=== PATIENT | female | born 1990 | race Two or more races ===

== ENCOUNTER 2024-07-31 08:54 | Emergency (ER) | payer MEDICAID, OTHER ==
[~2024-07-31] VITALS: Ht 167.6 cm; Wt 72.4 kg
[2024-07-31 09:15] VITALS: BP 153/75; PULSE 79; RESP 18; TEMP 97.5; O2SAT 99
[2024-07-31] MEDS ORDERED: AMOX500T3 PO (09:31)
[2024-07-31] MEDS ORDERED: HYDR-4902 PO (09:32)
== END 2024-07-31 09:34 | disposition home or self-care (01) ==
LOC: ER 08:54
DX: K02.9 Dental caries, unspecified (principal)

== ENCOUNTER 2025-02-24 10:15 | Emergency (ER) | payer MEDICAID ==
[~2025-02-24] VITALS: Ht 170.2 cm; Wt 82.0 kg
[~2025-02-24 10:15] MED LIST: AMOX500T3 PO; HYDR-4902 PO
[2025-02-24 11:19] VITALS: BP 127/70; PULSE 83; RESP 17; TEMP 98.6; O2SAT 98
[2025-02-24] MEDS ORDERED: PRED20TA2 PO (11:32)
[2025-02-24] MEDS ORDERED: PROM1SOL4 PO (11:32)
[2025-02-24] MEDS ORDERED: AUG875T PO (11:32)
--- NOTE | 2025-02-24 11:40 | ED.PDOC ---
SOB-HPI HPI Comments A 34 YEAR OLD FEMALE PRESENTS TO THE ED WITH CHIEF COMPLAINT OF FLU-LIKE SYMPTOMS. PATIENT REPORTS THAT SHE HAS BEEN EXPERIENCING A COUGH WITH ASSOCIATED GREEN PHLEGM, NASAL CONGESTION, SORE THROAT, AND LOWER BACK PAIN FOR THE PAST WEEK. PATIENT RELAYS THAT SHE VISITED PRIOR TO TODAY'S VISIT AND HAD A CHEST XR DONE, COMING BACK NORMAL. PATIENT STATES SHE WAS TOLD IT WAS ALLERGIES AND WAS PRESCRIBED ALLERGY MEDICATION WITH NO RELIEF NOTED. PATIENT DENIES ANY SOB, CHEST PAIN, FEVER, CHILLS, N/V, ABDOMINAL PAIN, OR HEADACHE. NO OTHER SYMPTOMS REPORTED AT THIS TIME OF CARE. 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: No Pertinent 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 RESEARCH SCIENTIST History Family History Family History: Reviewed,noncontributory to illness Social History Smoker: Non-Smoker Alcohol: Denies ETOH Use Drugs: Denies Drug Use Lives In: Home Constitutional: denies: chills, diaphoresis, fatigue, fever, malaise, sweats, weakness, others EENTM: reports: nose congestion, throat pain, throat swelling; denies: blurred vision, double vision, ear bleeding, ear discharge, ear drainage, ear pain, ear ringing, eye pain, eye redness, hearing loss, mouth pain, mouth swelling, nasal discharge, nose bleeding, nose pain, photophobia, tearing, voice changes, others Respiratory: reports: cough; denies: hemoptysis, orthopnea, SOB at rest, shortness of breath, SOB with excertion, stridor, wheezing, others Cardiovascular: denies: chest pain, dizzy spells, diaphoresis, Dyspnea on exertion, edema, irregular heart beat, left arm pain, lightheadedness, palpitations, PND, syncope, others Gastrointestinal: denies: abdomen distended, abdominal pain, blood streaked bowels, constipated, diarrhea, dysphagia, difficulty swallowing, hematemesis, melena, nausea, poor appetite, poor fluid intake, rectal bleeding, rectal pain, vomiting, others Genitourinary: denies: abnormal vagina bleeding, burning, dyspareunia, dysuria, flank pain, frequency, hematuria, incontinence, pain, , vagina discharge, urgency, others Neurological: denies: dizziness, fainting, headache, left sided numbness, left sided weakness, numbness, paresthesia, pre-existing deficit, right sided numbness, right sided weakness, seizure, speech problems, tingling, tremors, we akness, others Musculoskeletal: reports: back pain, muscle pain; denies: gout, joint pain, joint swelling, muscle stiffness, neck pain, others Integumetry: denies: bruises, change in color, change in hair/nails, dryness, laceration, lesions, lumps, rash, wounds, others Allergic/Immunocompromised: denies: Difficulty Healing, Frequent Infections, Hives, Itching, others Hematologic/Lymphatic: denies: anemia, blood clots, easy bleeding, easy bruising, swollen glands, others Endocrine: denies: excessive hunger, excessive sweating, excessive thirst, excessive urination, flushing, intolerance to cold, intolerance to heat, unexplained weight gain, unexplained weight loss, others Psychiatric: denies: anxiety, bipolar disorder, depression, hopeless, panic disorder, schizophrenia, sleepless, suicidal, others All Other Systems: Reviewed and Negative Physical Exam General Appearance: No Apparent Distress, Normal HEENT: PERRL/EOMI, Pharyngeal Erythema (TONSILLAR SWELLING, NO EXUDATES. ), Sinuses (TENDERNESS MAXILLARY SINUSES WITH POST NASAL DRIP. ), TMs Normal Neck: Full Range of Motion, Non-Tender, Normal, Normal Inspection Respiratory: Chest Non-Tender, Lungs Clear, No Accessory Muscle Use, No Respiratory Distress, Normal Breath Sounds Cardiovascular: No Edema, No JVD, No Murmur, No Gallop, Normal Peripheral Pulses, Regular Rate/Rhythm Breast Exam: Deferred Gastrointestinal: No Organomegaly, Non Tender, No Pulsatile Mass, Normal Bowel Sounds, Soft Genitalia: Deferred Pelvic: Deferred Rectal: Deferred Extremities: No calf tenderness, Normal capillary refill, Normal inspection, Normal range of motion, Non-tender, No pedal edema Musculoskeletal : Apperance: Normal Neurologic: Alert, manager water wastewater II-XII nml as Tested, No Motor Deficits, Normal Affect, Normal Mood, No Sensory Deficits Cerebellar Function: Normal Reflexes: Normal Skin: Dry, Normal Color, Warm Peripheral Pulses: 2+ carotid (R), 2+ carotid (L) Lymphatic: No Adenopathy Was a procedure done? Was a procedure done?: No Differential Dx Differential Diagnosis: Bronchitis, Pneumonia, Sinusitis, Allergic Rhinitis, Otitis Media, Pharyngitis, URI Comments TONSILLITIS X-Ray, Labs, Meds, VS Vital Signs Date Time Temp Pulse Resp B/P (MAP) Pulse Ox O2 Delivery O2 Flow Rate FiO2 02/24/25 11:19 98.6 83 17 127/70 (89) 98 98.6 02/24/25 11:19 83 17 98 Room Air 02/24/25 10:45 98.6 83 17 127/70 (89) 98 98.6 X-Ray, Labs, Meds, VS Comment EXTERNAL MEDICAL RECORDS REVIEWED: [NONE] INDEPENDENT HISTORIANS: [NONE] SOCIAL DETERMINANTS OF HEALTH: [NONE] LABS ORDERED: NONE REVIEWED AND INTERPRETED RESULTS: NONE IMAGING ORDERED: NONE TREATMENTS ORDERED: NONE PROCEDURES PERFORMED: NONE CRITICAL CARE TIME: NONE I HAVE DISCUSSED THE PATIENT WITH THE ATTENDING PHYSICIAN DR. SHIPLEY AND HE AGREES WITH THE PATIENT'S PLAN OF CARE AND DISPOSITION. BASED ON HISTORY OF PRESENT ILLNESS, AND PHYSICAL EXAM, PATIENT WILL BE DISCHARGED HOME. DISCUSSED PLAN FOR DISCHARGE HOME WITH RX AUGMENTIN, PREDNISONE, PHENERGAN DM. MEDICATION WARNINGS GIVEN. SHARED DECISION MAKING: DISCUSSED WITH PATIENT THAT THEIR WORKUP WAS NORMAL. PATIENT INSTRUCTED TO FOLLOW UP WITH PRIMARY CARE PROVIDER IN 1-2 DAYS FOR RE-EVALUATION OF SYMPTOMS. PATIENT VERBALIZES UNDERSTANDING TO RETURN TO ED FOR NEW OR WORSENING SYMPTOMS OR IF FOLLOW UP WITH PCP CANNOT BE OBTAINED. PATIENT FEELS COMFORTABLE GOING HOME AT THIS TIME. ALL QUESTIONS ADDRESSED AT TIME OF DISCHARGE. Time of 1ST Reevaluation: 11:54 Reevaluation 1ST: Improved Patient Education/Counseling: Diagnosis, Treatment, Need For Follow Up Family Education/Counseling: Diagnosis, Treatment, No Family Present Medical Screening: No EMC Exist At This Time Departure 1 Departure Time of Disposition: 12:00 Impression: Primary Impression: Acute maxillary sinusitis Qualified Codes: J01.00 - Acute maxillary sinusitis, unspecified Additional Impression: Acute tonsillitis Qualified Codes: J03.90 - Acute tonsillitis, unspecified Disposition: 01 HOME / SELF CARE / HOMELESS Condition: Other Additional Instructions: FOLLOW-UP WITH PCP IN 1 TO 2 DAYS. TAKE MEDICATIONS PRESCRIBED. RETURN TO ED FOR ANY NEW OR WORSENING SYMPTOMS. e-Prescriptions Promethazine-Dm (Promethazine Dm 6.25-15 mg/5Ml) 1 Ashwini Ashwini 5 ML PO TID, #180 ML Prov: GOOD MCMAHON 02/24/25 Prednisone (Prednisone) 20 Mg Tab 60 MG PO DAILY, #15 TAB Prov: GOOD MCMAHON 02/24/25 Amoxicillin & Pot Clavulanate (AUGMENTIN TABLET) 875 Mg Tb 875 MG PO BID for 10 Days, #20 TAB Prov: GOOD MCMAHON 02/24/25 Discharged With: Self Critical Care Note Critical Care Time?: No Stability Stability form required: No Heart Score Heart Score: Heart Score Response (Comments) Value History N/A 0 EKG N/A 0 Age N/A 0 Risk Factors N/A 0 Troponin N/A 0 Total 0 I personally scribed for GOOD MCMAHON ([email or web address]) on 02/24/25 at 11:40. Electronically submitted by Robert Bass ([email or web address]). GOOD MCMAHON February 24, 2025 11:40
== END 2025-02-24 11:48 | disposition home or self-care (01) ==
LOC: ER 10:25
DX: J01.00 Acute maxillary sinusitis, unspecified (principal); J03.90 Acute tonsillitis, unspecified

== ENCOUNTER 2025-03-13 22:59 | Emergency (ER) | payer MEDICAID ==
[~2025-03-13] VITALS: Ht 170.2 cm; Wt 81.2 kg
[~2025-03-13 22:59] MED LIST changes: +AUG875T PO; +PRED20TA2 PO; +PROM1SOL4 PO
[2025-03-14 00:08] VITALS: BP 113/75; PULSE 83; RESP 16; TEMP 98.2; O2SAT 97
[2025-03-14] MEDS ORDERED: ACET500T58 PO (00:16)
[2025-03-14] MEDS ORDERED: CETITAB29 PO (00:16)
[2025-03-14] MEDS ORDERED: AZIT-43 PO (00:16)
--- NOTE | 2025-03-14 00:17 | ED.PDOC ---
Eye-HPI HPI Comments 34 year old female presents to ER with complaints of sore throat x 3 weeks. Patient reports she has been experiencing a sore throat x 3 weeks. Notes that she was seen and evaluated in ER here on 02/24/25 and prescribed Augmentin antibiotics for acute tonsillitis that she finished without relief. She reports 10/ pain to throat with radiation toward bilateral ears. Patient also reports "possible exposure" to an STD after having unprotected sex yesterday with a male, denying any current urinary/STD symptoms. Notes she is following up with her PCP with regards to her current symptoms/complaints next . Denies fever, body aches, chills, shortness of breath, fatigue or any further symptoms/complaints Chief Complaint: Sore Throat Time Seen by MD: 23:06 Primary Care Provider: ANA LUISA Reviewed Notes: Nurses Notes, Medications, Allergies Allergies: Coded Allergies: NO KNOWN ALLERGIES (Unverified , 07/31/24) Home Meds Active Scripts Azithromycin (Azithromycin) 250 Mg Tab, 250 MG PO DAILY MDD 500 for 5 Days, #6 TAB 0 Refills 2 TABLETS ORALLY ON DAY ONE, THEN 1 TABLET ORALLY DAILY FOR 4 DAYS Prov:BRADY NIXON 03/14/25 Cetirizine HCl (Eql All Day Allergy) 10 Mg Tab, 10 MG PO DAILY PRN, #30 TAB 0 Refills Prov:BRADY NIXON 03/14/25 Acetaminophen (Acetaminophen) 500 Mg Tab, 500 MG PO Q4HPRN, #30 TAB 0 Refills Prov:BRADY NIXON 03/14/25 Promethazine-Dm (Promethazine Dm 6.25-15 mg/5Ml) 1 Ashwini Ashwini, 5 ML PO TID, #180 ML Prov:GOOD MCMAHON 02/24/25 Prednisone (Prednisone) 20 Mg Tab, 60 MG PO DAILY, #15 TAB Prov:GOOD MCMAHON 02/24/25 Amoxicillin & Pot Clavulanate (AUGMENTIN TABLET) 875 Mg Tb, 875 MG PO BID for 10 Days, #20 TAB Prov:GOOD MCMAHON 02/24/25 Hydrocodone-Acetaminophen (Hydrocodone Bitartrate/AC 5-325 mg) 1 Tab Tab, 1 TAB PO Q8HPRN PRN for 4 Days, #12 TAB 0 Refills Prov:ALYSHA JULIAN FOOD STAND MANAGER 07/31/24 Amoxicillin Trihydrate (Amoxicillin) 500 Mg Tab, 1 TAB PO BID for 7 Days, #14 TAB 0 Refills Prov:ALYSHA JULIAN FOOD STAND MANAGER 07/31/24 Information Source: Patient Mode of Arrival: Ambulatory Past Medical History PAST MEDICAL HISTORY: Denies Surgical History (Other): "Pelvic surgery" 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 DRYING 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 History Family History Family History: Unknown Social History Smoker: Non-Smoker Alcohol: Denies ETOH Use Drugs: Denies Drug Use Lives In: Home Constitutional: denies: chills, diaphoresis, fatigue, fever, malaise, sweats, weakness, others EENTM: reports: others (As stated in HPI) Respiratory: denies: cough, hemoptysis, orthopnea, SOB at rest, shortness of breath, SOB with excertion, stridor, wheezing, others Cardiovascular: denies: chest pain, dizzy spells, diaphoresis, Dyspnea on exertion, edema, irregular heart beat, left arm pain, lightheadedness, palpitations, PND, syncope, others Gastrointestinal: denies: abdomen distended, abdominal pain, blood streaked bowels, constipated, diarrhea, dysphagia, difficulty swallowing, hematemesis, melena, nausea, poor appetite, poor fluid intake, rectal bleeding, rectal pain, vomiting, others Genitourinary: denies: abnormal vagina bleeding, burning, dyspareunia, dysuria, flank pain, frequency, hematuria, incontinence, pain, , vagina discharge, urgency, others Neurological: denies: dizziness, fainting, headache, left sided numbness, left sided weakness, numbness, paresthesia, pre-existing deficit, right sided numbness, right sided weakness, seizure, speech problems, tingling, tremors, weakness, others Musculoskeletal: denies: back pain, gout, joint pain, joint swelling, muscle pain, muscle stiffness, neck pain, others Integumetry: denies: bruises, change in color, change in hair/nails, dryness, laceration, lesions, lumps, rash, wounds, others Allergic/Immunocompromised: denies: Difficulty Healing, Frequent Infections, Hives, Itching, others Hematologic/Lymphatic: denies: anemia, blood clots, easy bleeding, easy bruising, swollen glands, others Endocrine: denies: excessive hunger, excessive sweating, excessive thirst, excessive urination, flushing, intolerance to cold, intolerance to heat, unexplained weight gain, unexplained weight loss, others Psychiatric: denies: anxiety, bipolar disorder, depression, hopeless, panic disorder, schizophrenia, sleepless, suicidal, others Physical Exam General Appearance: No Apparent Distress HEENT: PERRL/EOMI, Pharyngeal Erythema (Mild tonsillar swelling/erythema noted bilaterally without exudates. Uvula-normal), TMs Normal Neck: Full Range of Motion, Non-Tender, Normal Respiratory: Chest Non-Tender, Lungs Clear, No Accessory Muscle Use, No Respiratory Distress, Normal Breath Sounds Cardiovascular: No Murmur, No Gallop, Regular Rate/Rhythm Breast Exam: Deferred Gastrointestinal: NOT DONE Genitalia: Deferred Pelvic: Deferred Rectal: Deferred Extremities: Normal capillary refill, Normal range of motion Neurologic: Alert, No Motor Deficits, Normal Affect, Normal Mood, No Sensory Deficits Cerebellar Function: Normal Reflexes: Normal Skin: Dry, Normal Color, Warm Lymphatic: No Adenopathy Was a procedure done? Was a procedure done?: No Sedation Sedation?: No EENT DIFF Eye: N/A Sore Throat: Epiglottitis, Mononeucleosis, Peritonsillar Abscess X-Ray, Labs, Meds, VS Vital Signs Date Time Temp Pulse Resp B/P (MAP) Pulse Ox O2 Delivery O2 Flow Rate FiO2 03/14/25 00:08 98.2 83 16 113/75 (88) 97 98.2 03/14/25 00:08 Room Air* 0 21 03/13/25 23:08 98.2 83 16 113/75 (88) 97 98.2 Rocephin 1 g IM ordered Azithromycin 1 g PO ordered Patient tolerating p.o. intake well and in no distress during ER visit/prior to discharge Safe sex practices discussed and advised Patient provided information to local [facility] and was advised for her and her sexual partner to f/u as soon as possible for STD testing Advised to f/u with PCP in 1-2 days Patient verbalized understanding and agreeable with current plan of care Advised to return to ER immediately if symptoms worsen Time of 1ST Reevaluation: 23:50 Reevaluation 1ST: N/A Patient Education/Counseling: Diagnosis, Treatment, Prognosis, Need For Follow Up Family Education/Counseling: No Family Present Departure 1 Departure Time of Disposition: 00:14 Impression: Primary Impression: Pharyngitis Qualified Codes: J02.9 - Acute pharyngitis, unspecified Additional Impression: Possible exposure to STD Disposition: 01 HOME / SELF CARE / HOMELESS Condition: Stable e-Prescriptions Azithromycin (Azithromycin) 250 Mg Tab 250 MG PO DAILY MDD 500 for 5 Days, #6 TAB 0 Refills 2 TABLETS ORALLY ON DAY ONE, THEN 1 TABLET ORALLY DAILY FOR 4 DAYS Prov: BRADY NIXON 03/14/25 Cetirizine HCl (Eql All Day Allergy) 10 Mg Tab 10 MG PO DAILY PRN, #30 TAB 0 Refills Prov: BRADY NIXON 03/14/25 Acetaminophen (Acetaminophen) 500 Mg Tab 500 MG PO Q4HPRN, #30 TAB 0 Refills Prov: BRADY NIXON 03/14/25 Discharged With: Self Critical Care Note Critical Care Time?: No Stability Stability form required: No Heart Score Heart Score: Heart Score Response (Comments) Value History N/A 0 EKG N/A 0 Age N/A 0 Risk Factors N/A 0 Troponin N/A 0 Total 0 BRADY NIXON March 14, 2025 00:17
[2025-03-14] MEDS: LIDOCAINE 1% HCL (LOCAL ANESTH.) INJ 20ML MDV ID ONE (00:24)
[2025-03-14] MEDS: AZITHROMYCIN 250 MG TAB PO ONE (00:24)
[2025-03-14] MEDS: cefTRIAXone SOD 1,000 MG VL IM ONE (00:25)
[2025-03-14] MEDS: LIDOCAINE 1% HCL (LOCAL ANESTH.) INJ 20ML MDV ONE (00:25)
== END 2025-03-14 00:30 | disposition home or self-care (01) ==
LOC: ER 23:01
DX: J02.9 Acute pharyngitis, unspecified (principal); Z79.899 Other long term (current) drug therapy; Z98.890 Other specified postprocedural states
CPT/HCPCS: 96372; 99283; J0696; J2003

== ENCOUNTER 2025-08-09 09:08 | Emergency (ER) | payer MEDICAID ==
[~2025-08-09 09:08] MED LIST changes: +ACET500T58 PO; +AZIT-43 PO; +CETITAB29 PO
[2025-08-09] MEDS: cefTRIAXone SOD 500 MG VL IM ONE (10:12)
[2025-08-09] MEDS ORDERED: METR-344 PO (10:14)
[2025-08-09] MEDS ORDERED: DOXY1CAP58 PO (10:14)
[2025-08-09 10:20] VITALS: BP 121/68; PULSE 81; RESP 18; TEMP 97.8; O2SAT 98
--- NOTE | 2025-08-09 10:46 | ED.PDOC ---
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 PT HAS BEEN HAVING VAGINAL DISCHARGE FOR THE PAST 5-6 DAYS. PT STATES THE DISCHARGE IS 'WHITE, CREAMY AND HAS MUSTY ODOR' PT STATES SHE HAS RECENT STD WITH RECENT SEXUAL ENCOUNTER. PATIENT DENIES FEVER, CHILLS, SHORTNESS OF BREATH, CHEST PAIN, ABDOMINAL PAIN, NAUSEA, VOMITING, HEADACHE, OR OTHER COMPLAINTS. NO OTHER SYMPTOMS OR MODIFYING FACTORS AT THIS TIME. PATIENT IS ALERT, ORIENTED X 4, AND HAS STEADY GAIT. Chief Complaint: Vaginal Discharge Time Seen by MD: 10:43 Reviewed Notes: Nurses Notes, Medications, Allergies Allergies: Coded Allergies: NO KNOWN ALLERGIES (Unverified , 07/31/24) Home Meds Active Scripts Doxycycline (Monohydrate) (Doxycycline) 100 Mg Cap, 100 MG PO BID, #20 CAP Prov:GOOD MCMAHON 08/09/25 Metronidazole (Flagyl) 500 Mg Tab, 1 TAB PO TID, #21 TAB Prov:GOOD MCMAHON 08/09/25 Azithromycin (Azithromycin) 250 Mg Tab, 250 MG PO DAILY MDD 500 for 5 Days, #6 TAB 0 Refills 2 TABLETS ORALLY ON DAY ONE, THEN 1 TABLET ORALLY DAILY FOR 4 DAYS Prov:BRADY NIXON 03/14/25 Cetirizine HCl (Eql All Day Allergy) 10 Mg Tab, 10 MG PO DAILY PRN, #30 TAB 0 Refills Prov:BRADY NIXON 03/14/25 Acetaminophen (Acetaminophen) 500 Mg Tab, 500 MG PO Q4HPRN, #30 TAB 0 Refills Prov:BRADY NIXON 03/14/25 Promethazine-Dm (Promethazine Dm 6.25-15 mg/5Ml) 1 Ashwini Ashwini, 5 ML PO TID, #180 ML Prov:GOOD MCMAHON 02/24/25 Prednisone (Prednisone) 20 Mg Tab, 60 MG PO DAILY, #15 TAB Prov:GOOD MCMAHON 02/24/25 Amoxicillin & Pot Clavulanate (AUGMENTIN TABLET) 875 Mg Tb, 875 MG PO BID for 10 Days, #20 TAB Prov:GOOD MCMAHON 02/24/25 Hydrocodone-Acetaminophen (Hydrocodone Bitartrate/AC 5-325 mg) 1 Tab Tab, 1 TAB PO Q8HPRN PRN for 4 Days, #12 TAB 0 Refills Prov:ALYSHA JULIAN PROPERTY ADMINISTRATOR 07/31/24 Amoxicillin Trihydrate (Amoxicillin) 500 Mg Tab, 1 TAB PO BID for 7 Days, #14 TAB 0 Refills Prov:ALYSHA JULIAN PROPERTY ADMINISTRATOR 07/31/24 Information Source: Patient Mode of Arrival: Ambulatory Timing: Days Prehospital treatment: None Severity: Mild Vaginal Discharge: None Vaginal Lesions: None Vaginal Mass: None Control: None Blood Type: Unknown Associated Signs and Symptoms: Vaginal Discharge Past Medical History PAST MEDICAL HISTORY: Denies Surgical History: Denies all surgeries TITLE I DIRECTOR History: No Pertinent TITLE I DIRECTOR History Family History Family History: Reviewed,noncontributory to illness Social History Smoker: Non-Smoker Alcohol: Denies ETOH Use Drugs: Denies Drug Use Lives In: Home Constitutional: denies: chills, diaphoresis, fatigue, fever, malaise, sweats, weakness, others EENTM: denies: blurred vision, double vision, ear bleeding, ear discharge, ear drainage, ear pain, ear ringing, eye pain, eye redness, hearing loss, mouth pain, mouth swelling, nasal discharge, nose bleeding, nose congestion, nose pain, photophobia, tearing, throat pain, throat swelling, voice changes, others Respiratory: denies: cough, hemoptysis, orthopnea, SOB at rest, shortness of breath, SOB with excertion, stridor, wheezing, others Cardiovascular: denies: chest pain, dizzy spells, diaphoresis, Dyspnea on exertion, edema, irregular heart beat, left arm pain, lightheadedness, palpitations, PND, syncope, others Gastrointestinal: denies: abdomen distended, abdominal pain, blood streaked bowels, constipated, diarrhea, dysphagia, difficulty swallowing, hematemesis, melena, nausea, poor appetite, poor fluid intake, rectal bleeding, rectal pain, vomiting, others Genitourinary: reports: burning, vagina discharge; denies: abnormal vagina bleeding, dyspareunia, dysuria, flank pain, frequency, hematuria, incontinence, pain, , urgency, others Neurological: denies: dizziness, fainting, headache, left sided numbness, left sided weakness, numbness, paresthesia, pre-existing deficit, right sided numbness, right sided weakness, seizure, speech problems, tingling, tremors, weakness, others Musculoskeletal: denies: back pain, gout, joint pain, joint swelling, muscle pain, muscle stiffness, neck pain, others Integumetry: denies: bruises, change in color, change in hair/nails, dryness, laceration, lesions, lumps, rash, wounds, others Allergic/Immunocompromised: denies: Difficulty Healing, Frequent Infections, Hives, Itching, others Hematologic/Lymphatic: denies: anemia, blood clots, easy bleeding, easy bruising, swollen glands, others Endocrine: denies: excessive hunger, excessive sweating, excessive thirst, excessive urination, flushing, intolerance to cold, intolerance to heat, unexplained weight gain, unexplained weight loss, others Psychiatric: denies: anxiety, bipolar disorder, depression, hopeless, panic disorder, schizophrenia, sleepless, suicidal, others All Other Systems: Reviewed and Negative Physical Exam General Appearance: No Apparent Distress, Normal HEENT: Normal ENT Inspection, PERRL/EOMI, Pharynx Normal, TMs Normal Neck: Full Range of Motion, Non-Tender, Normal, Normal Inspection Respiratory: Chest Non-Tender, Lungs Clear, No Accessory Muscle Use, No Respiratory Distress, Normal Breath Sounds Cardiovascular: No Edema, No JVD, No Murmur, No Gallop, Normal Peripheral Pulses, Regular Rate/Rhythm Breast Exam: Deferred Gastrointestinal: No Organomegaly, Non Tender, No Pulsatile Mass, Normal Bowel Sounds, Soft Genitalia: Deferred Pelvic: Discharge (WHITE AND YELLOW DISCHARGE, NO VAGINAL SKIN RASH ), Normal External Exam Rectal: Deferred Extremities: No calf tenderness, Normal capillary refill, Normal inspection, Normal range of motion, Non-tender, No pedal edema Musculoskeletal : Apperance: Normal Neurologic: Alert, desk assistant II-XII nml as Tested, No Motor Deficits, Normal Affect, Normal Mood, No Sensory Deficits Cerebellar Function: Normal Reflexes: Normal Skin: Dry, Normal Color, Warm Peripheral Pulses: 2+ carotid (R), 2+ carotid (L) Lymphatic: No Adenopathy Was a procedure done? Was a procedure done?: No Differential Diagnosis (TITLE I DIRECTOR) Vaginal Bleeding: Vaginitis Vaginal Discharge: Physiologic Discharge, UTI, Vaginitis - Bacterial, Vaginitis - Candidal, Vaginitis - Herpes, Vaginitis - Trichomonas X-Ray, Labs, Meds, VS Vital Signs Date Time Temp Pulse Resp B/P (MAP) Pulse Ox O2 Delivery O2 Flow Rate FiO2 08/09/25 10:20 81 18 98 Room Air 08/09/25 10:20 97.8 81 18 121/68 (85) 98 97.8 08/09/25 09:10 98.1 80 15 125/79 98 98.1 Lab Test 08/09/25 10:05 Range/Units Urine Color Pending Urine Clarity Pending Urine pH Pending Urine Specific [place] Pending Urine Protein Pending Urine Ketones Pending Urine Blood Pending Urine Nitrite Pending Urine Bilirubin Pending Urine Urobilinogen Pending Urine Leukocyte Esterase Pending Urine RBC Pending Urine Microscopic WBC Pending Urine Squamous Epithelial Cells Pending Urine Bacteria Pending Urine Glucose Pending Chlamydia trachomatis (SOCO) Pending Neisseria gonorrhoeae (SOCO) Pending Current Medications Medications (Trade) Dose Ordered Sig/Devang Route Start Time Stop Time Status Last Admin Ceftriaxone Sodium (Rocephin) 500 mg ONCE ONCE IM 08/09/25 10:15 08/09/25 10:16 DC 08/09/25 10:12 X-Ray, Labs, Meds, VS Comment COURSE: EXTERNAL MEDICAL RECORDS REVIEWED: [NONE] INDEPENDENT HISTORIANS: [NONE] SOCIAL DETERMINANTS OF HEALTH: [NONE] LABS ORDERED: UA, STD; CHLAMYDIA/GONORRHEA REVIEWED AND INTERPRETED RESULTS: PENDING IMAGING ORDERED: NONE TREATMENTS ORDERED: ROCEPHIN 500 MG IM PROCEDURES PERFORMED: NONE CRITICAL CARE TIME: NONE I HAVE DISCUSSED THE PATIENT WITH THE ATTENDING PHYSICIAN, DR. ROA, HE AGREES WITH THE PATIENT'S PLAN OF CARE AND DISPOSITION. BASED ON HISTORY OF PRESENT ILLNESS, AND PHYSICAL EXAM, PATIENT WILL BE DISCHARGED HOME. DISCUSSED PLAN FOR DISCHARGE HOME WITH RX [FLAGYL AND DOXYCYCLINE ]. MEDICATION WARNINGS GIVEN. SHARED DECISION MAKING: DISCUSSED WITH PATIENT THAT THEIR WORKUP WAS NORMAL. PATIENT INSTRUCTED TO FOLLOW UP WITH PRIMARY CARE PROVIDER IN 1-2 DAYS FOR RE- EVALUATION OF SYMPTOMS. PATIENT VERBALIZES UNDERSTANDING TO RETURN TO ED FOR NEW OR WORSENING SYMPTOMS OR IF FOLLOW UP WITH PCP CANNOT BE OBTAINED. PATIENT FEELS COMFORTABLE GOING HOME AT THIS TIME. ALL QUESTIONS ADDRESSED AT TIME OF DISC HARGE. Time of 1ST Reevaluation: 11:15 Reevaluation 1ST: Unchanged Patient Education/Counseling: Diagnosis, Treatment, Need For Follow Up Family Education/Counseling: Diagnosis, Treatment, No Family Present Medical Screening: No EMC Exist At This Time Departure 1 Departure Time of Disposition: 10:54 Impression: Primary Impression: Bacterial vaginitis Additional Impressions: Screen for STD (sexually transmitted disease) Treatment given Disposition: HOME / SELF CARE / HOMELESS Condition: Stable Additional Instructions: INSTRUCTIONS: FOLLOW-UP WITH PCP IN 1 TO 2 DAYS. TAKE MEDICATIONS PRESCRIBED. RETURN TO ED FOR ANY NEW OR WORSENING SYMPTOMS. e-Prescriptions Doxycycline (Monohydrate) (Doxycycline) 100 Mg Cap 100 MG PO BID, #20 CAP Prov: GOOD MCMAHON 08/09/25 Metronidazole (Flagyl) 500 Mg Tab 1 TAB PO TID, #21 TAB Prov: GOOD MCMAHON 08/09/25 Discharged With: Self Critical Care Note Critical Care Time?: No Stability Stability form required: No Heart Score Heart Score: Heart Score Response (Comments) Value History N/A 0 EKG N/A 0 Age N/A 0 Risk Factors N/A 0 Troponin N/A 0 Total 0 I personally scribed for GOOD MCMAHON ([email or web address]) on 08/09/25 at 10:46. Electronically submitted by Nic Mayorga ([email or web address]). GOOD MCMAHON Aug 09, 2025 10:46
[2025-08-09 11:38] LABS: Urine Protein, UAD TRACE (Negative)
[2025-08-11 05:08] LABS: Chlamydia Trachomatis, NAA Negative (Negative); Neisseria gonorrhoeae, NAA Negative (Negative)
== END 2025-08-09 10:23 | disposition home or self-care (01) ==
LOC: ER 09:08
DX: N76.0 Acute vaginitis (principal); B96.89 Other specified bacterial agents as the cause of diseases classified elsewhere; Z11.3 Encounter for screening for infections with a predominantly sexual mode of transmission
CPT/HCPCS: 81001; 87491; 87591; 96372; 99283; J0696